=== PATIENT | male | born 1985 | race Caucasian/White ===

== ENCOUNTER 2017-05-19 20:08 | Emergency (ER) | payer OTHER, BC ==
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
--- NOTE | 2017-05-22 11:41 | CR ---
Lumbar spine: AP, lateral and coned down lateral views centered to the lumbosacral junction were obtained. Comparison: No prior study. Mild disc space narrowing is seen at L5-S1. Other disc spaces are maintained. Scattered Schmorl's node deformities are seen. Vertebral body heights are maintained. Pedicles as well as visualized transverse and spinous processes are intact. No subluxation or fracture is seen. Impression: 1. Incidental findings. Nothing acute is appreciated on three-view lumbar spine study. Diagnostic code #2
--- NOTE | 2017-05-22 11:41 | CT ---
CT cervical spine Technique: Multiple axial sections were obtained from above C1 inferiorly to the bottom of T1. Reconstructed sagittal and coronal images were reviewed. Comparison: No prior cervical spine imaging. Findings: Vertebral body heights and disc spaces are maintained. Vertebral bodies and posterior arches are intact with no fracture being seen. No bony central or bony neural foraminal stenosis is seen. No abnormal subluxation is seen on the reconstructed sagittal images. Impression: 1. Nothing acute is identified on CT study of the cervical spine. Diagnostic code #1 I agree with preliminary report issued by [facility] ([facility] report finalized on 05/19/17, 9:58 PM Central Time)
--- NOTE | 2017-05-22 11:41 | CR ---
Chest: Two views of the chest were obtained. Comparison: No prior study. Heart size and mediastinum are normal. Two sternotomy wires are seen. Lungs are clear with no acute infiltrates. Bony structures appear intact. Impression: 1. Nothing acute is identified on two-view chest x-ray. Diagnostic code #2
--- NOTE | 2017-05-22 11:41 | CT ---
Head CT Technique: Multiple axial sections through the brain were obtained. Intravenous contrast was not utilized. Comparison: No previous cranial imaging is available. Findings: Ventricles along with basal cisterns and sulci over the convexities are within normal limits for the patient's age. No abnormal parenchymal densities are seen. No evidence of intracranial hemorrhage. No midline shift or mass effect is seen. Bone window settings were reviewed which show no acute calvarial abnormality. Visualized sinuses are clear. Impression: 1. Nothing acute is appreciated on noncontrast head CT study. Diagnostic code #1 I agree with preliminary report issued by [facility] ([facility] report finalized on 05/19/17, 9:55 PM Central Time)
== END 2017-05-19 21:40 | disposition home or self-care (01) ==
LOC: JD.ED 20:08
DX: S39.012A Strain of muscle, fascia and tendon of lower back, initial encounter (principal); S13.9XXA Sprain of joints and ligaments of unspecified parts of neck, initial encounter; S40.012A Contusion of left shoulder, initial encounter; S20.211A Contusion of right front wall of thorax, initial encounter; V89.2XXA Person injured in unspecified motor-vehicle accident, traffic, initial encounter
CPT/HCPCS: 36415; 70450; 71020; 72100; 72125; 80306; 99285; G0480; 99284